=== PATIENT | male | born 1945 | race African-American/Black ===

== ENCOUNTER 2017-02-11 09:01 | Day surgery (SDC) | payer MEDICARE ==
[2017-02-11] VITALS (7 sets, daily range): BP systolic 141–196; BP diastolic 54–90; PULSE 66–84; RESP 20–22; TEMP 98.2–98.4; O2SAT 90–96
[~2017-02-11] VITALS: Ht 170.2 cm; Wt 81.8 kg
[~2017-02-11 09:01] MED LIST: 1-ME1LIQ PO; ASPI325T PO; COZA50TA PO; GEMF600T PO; HYDR10TA16 PO; VITA100017 PO; WARF-60 PO; WARF1TAB PO
[2017-02-11] MEDS ORDERED: LOSA100T PO (09:34)
[2017-02-11] MEDS ORDERED: ENOX120I SQ (09:34)
[2017-02-11] MEDS ORDERED: ALLO100T PO (09:34)
[2017-02-11] MEDS ORDERED: HYDR25TA5 PO (09:34)
[2017-02-11] MEDS ORDERED: IPRA17I INH (09:34)
[2017-02-11] MEDS ORDERED: AMLO10TA2 PO (09:34)
[2017-02-11] MEDS ORDERED: SODIUM CHLOR 0.9% 1000 ML IV SCH (10:00)
[2017-02-11 10:27] LABS: BASOPHIL % 0.5 % (0.0-2.0); EOSINOPHIL # 0.3 TH/MM3 (0-0.4); EOSINOPHIL % 3.5 % (0.0-4.0); HEMATOCRIT 39.4 % (39.0-51.0); HEMO FLAGS DIFF FINAL; LYMPH % 31.2 % (9.0-44.0); MEAN CELL VOLUME 90.2 FL (80.0-100.0); MEAN CORPUSCULAR HEMOGLOBIN 29.9 PG (27.0-34.0); MEAN CORPUSCULAR HGB CONC 33.1 % (32.0-36.0); MONO % 12.3 % (0.0-8.0); NEUT % 52.5 % (16.0-70.0); PLATELET COUNT 151 TH/MM3 (150-450); RED BLOOD COUNT 4.36 MIL/MM3 (4.50-5.90); RED CELL DISTRIBUTION WIDTH 14.2 % (11.6-17.2); WHITE BLOOD COUNT 9.5 TH/MM3 (4.0-11.0)
[2017-02-11] MEDS ORDERED: LIDOCAINE HCL 1% 20 ML VIAL ONE (10:28)
[2017-02-11 10:38] LABS: APTT (PATIENT) 34.8 SEC (24.3-30.1); PROTHROMBIN TIME - PATIENT 11.4 SEC (9.8-11.6)
[2017-02-11] MEDS ORDERED: MIDAZOLAM HCL 5 MG/5 ML VIAL ONE (11:02)
[2017-02-11] MEDS ORDERED: fentaNYL CITRATE 250 MCG/5 ML AMP ONE (11:02)
[2017-02-11] MEDS ORDERED: THROMBIN (TOPICAL) 5,000 UNIT VIAL ONE (11:28)
--- NOTE | 2017-02-11 11:42 | PD.RAD ---
Post Procedure Progress Note Pre Procedure Diagnosis: (1) Right lower lobe lung mass Post Procedure Diagnosis: (1) Right lower lobe lung mass Procedure Date: Feb 11, 2017 Supervising Radiologist: Lit Monae Anesthesia: Local, Conscious Sedation Plan of Activity Patient to Unit: [facility] Patient Condition: Good Additional Comments: Post right Lung biopsy. No pneumothorax on follow up ct CXR pending See PACS Report for procedural detail/treatment Lit Monae MD Feb 11, 2017 11:42
[2017-02-11] MEDS ORDERED: oxyCODONE/ACETAMINOPHEN 5 MG/325 MG TAB PO PRN (11:45)
--- NOTE | 2017-02-11 12:16 | RADRPT ---
EXAM DATE/TIME: 02/11/2017 11:13 [facility] COMPARISON: No previous studies available for comparison. INDICATIONS : Right lung mass. SEDATION TIME: 15 minutes BIOPSY SITE: Right lung MEDICATION(S): 1.) 1.5 mg midazolam (Versed) IV 2.) 75 mcg fentanyl (Sublimaze) IV DEVICE(S): 1.) 18 gauge Gómez blunt needle 2.) 20 gauge Temno core biopsy needle 3.) Gelfoam MEDICAL HISTORY : Chronic obstructive pulmonary disease. SURGICAL HISTORY : None. ENCOUNTER: Initial ACUITY: 1 day PAIN SCORE: 0/10 LOCATION: Right chest A total of three core specimen(s) were obtained and sent to the laboratory for pathologic evaluation. PROCEDURE: 1. CT guided lung biopsy. 2. Conscious sedation with continuous EKG and oximetry monitoring. 3. EKG and oximetry remained stable throughout the procedure. Prior to the procedure informed consent was obtained. Any appropriate prior imaging studies were rev iewed. Using automated exposure control and adjustment of the mA and/or kV according to patient size, radiation dose was kept as low as reasonably achievable to obtain optimal diagnostic quality images. The site was prepped in a sterile fashion. Full sterile technique was used, including cap, mask, joanna rile gloves and gown and a large sterile sheet. Hand hygiene and 2% chlorhexidine and/or betadine/al cohol prep was utilized per protocol for cutaneous antisepsis. The skin and subcutaneous tissues wer e infiltrated with local anesthetic solution. With CT guidance the previously identified target was localized. A Gómez blunt needle was advanced to the skin of the back and down into the posterior margin of the patient's right lower lobe mass. A 20 gauge Temno biopsy needle was advanced through the Gómez blunt needle into the lesion. A total o f 3 core biopsies were obtained. Position within the mass was confirmed prior to each biopsy. The tra ct was injected with a small amount of Gelfoam and thrombin on the way out. Adequate hemostasis was o btained with compression at the puncture site. Follow-up CT scan reveals no pneumothorax. Conscious sedation was performed with the prescribed dosages and duration as above in the presence of an independent trained radiology nurse to assist in the monitoring of the patient. EKG and oximetry remained stable throughout the procedure. The patient tolerated the procedure well and there were no complications. The patient was sent to Radiology Outpatient Unit in stable condition. Chest x-ray in 2 hours is pending. CONCLUSION: Uncomplicated CT guided biopsy. Lit Monae MD on February 11, 2017 at 12:13 Board Certified Radiologist. This report was verified electronically.
--- NOTE | 2017-02-11 13:20 | RADRPT ---
EXAM DATE/TIME: 02/11/2017 12:52 [facility] COMPARISON: No previous studies available for comparison. INDICATIONS : Post right lung biopsy. MEDICAL HISTORY : Chronic obstructive pulmonary disease. SURGICAL HISTORY : None. ENCOUNTER: Initial ACUITY: 1 day PAIN SCORE: 0/10 LOCATION: chest FINDINGS: A single frontal expiratory view of the chest was performed. The lungs are symmetrically aerated and clear. No evidence of pneumothorax. Mediastinal structures are in the midline. The cardio-mediastinal contours and bronchopulmonary markings are unremarkable for an expiratory exam . Osseous structures are intact. CONCLUSION: 1. No pneumothorax identified. 2. The patient's known right-sided lung mass is not visible by chest x-ray. Lit Monae MD on February 11, 2017 at 13:17 Board Certified Radiologist. This report was verified electronically.
== END 2017-02-11 15:00 | disposition home or self-care (01) ==
LOC: HRAD 09:01 → HRIP 09:05 → HRAD 15:00
PROVIDERS: ATTEND Internal Medicine
DX: C34.31 Malignant neoplasm of lower lobe, right bronchus or lung (principal); J44.9 Chronic obstructive pulmonary disease, unspecified; I12.9 Hypertensive chronic kidney disease with stage 1 through stage 4 chronic kidney disease, or unspecified chronic kidney disease; N18.9 Chronic kidney disease, unspecified; E66.9 Obesity, unspecified; M10.9 Gout, unspecified; M19.90 Unspecified osteoarthritis, unspecified site; Z68.28 Body mass index [BMI] 28.0-28.9, adult; Z95.820 Peripheral vascular angioplasty status with implants and grafts
CPT/HCPCS: 32405; 71010; 77012; 85025; 85610; 85730; 88305; J2250; J3010; J7030